=== PATIENT | male | born 1940 | race Caucasian/White ===

== ENCOUNTER 2018-09-12 14:45 | Emergency (ER) | payer MEDICARE, BC ==
[~2018-09-12] VITALS: Ht 172.7 cm; Wt 85.1 kg
[2018-09-12 14:48] VITALS: BP 135/83
[2018-09-12] MEDS ORDERED: HYDR-4383 PO (17:14)
== END 2018-09-12 17:26 | disposition home or self-care (01) ==
LOC: ER 14:46
DX: S22.31XA Fracture of one rib, right side, initial encounter for closed fracture (principal); M25.511 Pain in right shoulder; Z79.899 Other long term (current) drug therapy; W18.39XA Other fall on same level, initial encounter; Y93.89 Activity, other specified; Y92.89 Other specified places as the place of occurrence of the external cause; Y99.8 Other external cause status
CPT/HCPCS: 71101; 73030; 99283